=== PATIENT | female | born 1980 | race African-American/Black ===

== ENCOUNTER 2021-01-15 05:31 | Observation (INO) ==
[2021-01-15] MEDS ORDERED: ONDANSETRON 4 MG/2 ML VIAL IV STA ×2 (06:12→08:51)
[2021-01-15] MEDS ORDERED: PANTOPRAZOLE 40 MG VIAL IV STA (06:12)
[2021-01-15 07:03] LABS: Bilirubin,Urine Negative (Negative); Blood, Urine Moderate mg/dL (Negative); Glucose,Urine (UA) >=500 mg/dL (Negative); Ketones,Urine Negative (Negative); Mucus,Urine Occasional /LPF (Occasional); Nitrite,Urine Negative (Negative); Protein,Urine >=500 MG/DL; RBC,Urine 3 /HPF (0-4); Squamous Epithelial Cell,Urine Few /HPF (0-10); Urine Appearance CLEAR (Clear); Urine Color Straw (Yellow); Urine Specific Gravity 1.026 (1.001-1.035); Urine Urobilinogen < 2.0 EU/DL (0.2-1.0)
[2021-01-15 07:42] LABS: Albumin 2.3 G/DL (3.4-5.0); Bilirubin,Total 0.9 MG/DL (0.20-1.00); Calcium 8.8 MG/DL (8.5-10.1); Osmolality,Calculated 289.7 MOS/KG (273-304); Potassium 4.2 MMOL/L (3.5-5.1); Total Protein 6.7 G/DL (6.4-8.2)
[2021-01-15] MEDS ORDERED: HYDROmorphone 2 MG/1 ML VIAL IV STA (08:50)
[2021-01-15] MEDS ORDERED: DEXTROSE 50% 25 GM/50 ML VIAL IV PRN (09:29)
[2021-01-15] MEDS ORDERED: GLUCAGON 1 MG VIAL IM PRN (09:29)
[2021-01-15] MEDS ORDERED: ONDANSETRON 4 MG/2 ML VIAL IV PRN (09:30)
[2021-01-15] MEDS ORDERED: ACETAMINOPHEN 325 MG TABLET PO PRN (09:30)
[2021-01-15] MEDS ORDERED: ENOXAPARIN 40 MG/0.4 ML SYRINGE SUBCUT SCH (09:30)
[2021-01-15] MEDS ORDERED: BISACODYL 5 MG TABLET PO PRN (09:30)
[2021-01-15] MEDS ORDERED: NICOTINE 21 MG/24 HR PATCH TRANSDERM PRN (09:33)
[2021-01-15 10:00] LABS: Basophils # 0.1 10*3/uL (0.0-0.2); Basophils % 0.4 % (0.0-0.8); Eosinophils # 0.1 10*3/uL (0.0-0.87); Eosinophils % 0.8 % (0.00-10.9); Hematocrit 29.5 VOL% (35.7-47.0); Immature Granulocytes % 0.4 %; Immature Granulocytes Absolute 0.05 #; Lymphocytes # 1.3 10*3/uL (1.4-4.0); Mean Corpuscular HGB Conc 27.1 GM/DL (32-36); Mean Corpuscular Volume 58.5 FL (87-102); Monocytes % 7.1 % (1.7-12.7); Neutrophils % 81.3 % (38.7-73.9); Platelet Count 582 T/CUMM (130-400); Red Blood Count 5.04 MC/CUMM (3.8-5.5); Red Cell Distribution Width 21.7 % (9.3-17.3)
[2021-01-15] MEDS ORDERED: PANTOPRAZOLE 40 MG TABLET PO SCH (10:00)
[2021-01-15 10:07] LABS: Hypochromasia 2+
[2021-01-15 10:08] LABS: Microcytosis 2+; Ovalocytes Slight; Platelet Estimate Increased
[2021-01-15] MEDS ORDERED: ALUM/MAG/SIMETH/LIDO VISC 1:1 30 ML BOTTLE PO STA (10:09)
[2021-01-15] MEDS: ATORVASTATIN 20 MG TABLET PO SCH (10:55)
[2021-01-15] MEDS: SODIUM CHLORIDE 0.9% 1,000 ML IV SCH (10:55)
[2021-01-15] MEDS: lisinopriL 20 MG TABLET PO SCH (10:56)
[2021-01-15] MEDS ORDERED: hydroCHLOROthiazide 25 MG TABLET PO STA (11:05)
[2021-01-15] MEDS: INSULIN GLARGINE 100 UNIT/ML SUBCUT SCH (11:26)
[2021-01-15] MEDS: ASPIRIN EC 81 MG TABLET PO SCH (11:27)
[2021-01-15] MEDS: carvediloL 6.25 MG TABLET PO SCH ×2 (11:27→21:18)
[2021-01-15] MEDS: POLYETHYLENE GLYCOL POWDER 17 GM PACK PO SCH (11:27)
[2021-01-15] MEDS: INSULIN LISPRO 100 UNIT/ML SUBCUT SCH ×4 (11:28→21:20)
[2021-01-15] MEDS: FERROUS SULFATE 325 MG TABLET PO SCH (21:18)
[2021-01-15] MEDS: PANTOPRAZOLE 40 MG TABLET PO SCH (21:19)
[2021-01-16] MEDS: SODIUM CHLORIDE 0.9% 1,000 ML IV SCH ×2 (02:28→12:18)
[2021-01-16] MEDS: INSULIN LISPRO 100 UNIT/ML SUBCUT SCH ×2 (08:17→12:42)
[2021-01-16] MEDS: INSULIN GLARGINE 100 UNIT/ML SUBCUT SCH (08:17)
[2021-01-16 08:50] LABS: Basophils # 0.1 10*3/uL (0.0-0.2); Basophils % 0.4 % (0.0-0.8); Eosinophils # 0.1 10*3/uL (0.0-0.87); Eosinophils % 0.5 % (0.00-10.9); Hematocrit 28.4 VOL% (35.7-47.0); Immature Granulocytes % 0.4 %; Immature Granulocytes Absolute 0.06 #; Lymphocytes # 1.5 10*3/uL (1.4-4.0); Mean Corpuscular HGB Conc 27.5 GM/DL (32-36); Monocytes % 7.1 % (1.7-12.7); Neutrophils % 80.6 % (38.7-73.9); Platelet Count 562 T/CUMM (130-400); Red Cell Distribution Width 21.9 % (9.3-17.3); White Blood Count 13.7 T/CUMM (4-12)
[2021-01-16 08:52] LABS: Hemoglobin 7.8 GM/DL (12.0-16.0)
[2021-01-16] MEDS ORDERED: VANCOMYCIN INJ 1,750 MG in SODIUM CHLORIDE 0.9% 500 ML IV ONE (08:54)
[2021-01-16 08:56] LABS: % Iron Saturation 6.5 % (18-50); Bilirubin,Total 0.8 MG/DL (0.20-1.00); Calcium 8.7 MG/DL (8.5-10.1); Ferritin 10.5 ng/mL (8-252); Osmolality,Calculated 279.5 MOS/KG (273-304); Potassium 3.1 MMOL/L (3.5-5.1); Risk Ratio 2.47; Total Protein 6.9 G/DL (6.4-8.2)
[2021-01-16] MEDS ORDERED: hydroCHLOROthiazide 25 MG TABLET PO SCH (09:00)
[2021-01-16] MEDS ORDERED: POTASSIUM CHLORIDE 20 MEQ TABLET PO PRN (09:01)
[2021-01-16 09:12] LABS: Calcium 8.6 MG/DL (8.5-10.1); Osmolality,Calculated 281.4 MOS/KG (273-304); Potassium 3.2 MMOL/L (3.5-5.1)
[2021-01-16] MEDS ORDERED: POLYETHYLENE GLYCOL POWDER 17 GM PACK PO PRN (09:26)
[2021-01-16] MEDS ORDERED: LIDOCAINE 1%/EPI INJ 20 ML VIAL ONE (10:55)
[2021-01-16] MEDS ORDERED: BUPIVACAINE MPF 0.25% 30 ML VIAL ONE (10:55)
[2021-01-16] MEDS ORDERED: MIDAZOLAM 2 MG/2 ML VIAL ONE (11:24)
[2021-01-16] MEDS ORDERED: KETAMINE 500 MG/10 ML VIAL ONE (11:24)
[2021-01-16] MEDS ORDERED: propofoL 200 MG/20 ML VIAL IV ONE (11:38)
[2021-01-16] MEDS ORDERED: POTASSIUM CHLORIDE 20 MEQ TABLET PO ONE (11:58)
[2021-01-16] MEDS: POLYETHYLENE GLYCOL POWDER 17 GM PACK PO SCH (12:18)
[2021-01-16] MEDS: ASPIRIN EC 81 MG TABLET PO SCH (12:41)
[2021-01-16] MEDS: lisinopriL 20 MG TABLET PO SCH (12:41)
[2021-01-16] MEDS: ATORVASTATIN 20 MG TABLET PO SCH (12:41)
[2021-01-16] MEDS: FERROUS SULFATE 325 MG TABLET PO SCH (12:42)
[2021-01-16] MEDS: PANTOPRAZOLE 40 MG TABLET PO SCH (12:42)
[2021-01-16] MEDS: carvediloL 6.25 MG TABLET PO SCH (12:47)
[2021-01-16 13:05] VITALS: BP 134/74
== END 2021-01-16 15:07 | disposition home or self-care (01) ==
LOC: N.EDINP 05:31 → N.ED 05:31 → N.TELEN 12:09
PROVIDERS: ADMIT Internal Medicine; ATTEND Internal Medicine

== ENCOUNTER 2021-02-25 20:08 | Observation (INO) ==
[2021-02-25] MEDS ORDERED: PIPERACILLIN/TAZOBACTAM 3,375 MG in SODIUM CHLORIDE 0.9% 100 ML IV STA (21:56)
[2021-02-25] MEDS ORDERED: SODIUM CHLORIDE 0.9% 1,000 ML IV STA (21:57)
[2021-02-25] MEDS ORDERED: HYDROmorphone 2 MG/1 ML VIAL IV ONE (21:57)
[2021-02-25] MEDS ORDERED: ONDANSETRON 4 MG/2 ML VIAL IV STA (21:57)
[2021-02-25 23:29] LABS: Alanine Aminotransferase < 9 U/L (13-56); Albumin 1.9 G/DL (3.4-5.0); Alkaline Phosphatase 119 U/L (45-117); Aspartate Amino Transferase 12 U/L (0-37); Bilirubin,Total < 0.39 MG/DL (0.20-1.00); Blood Urea Nitrogen 11 MG/DL (7-18); Carbon Dioxide 28 MMOL/L (21-32); Estimated Glom Filtration Rate 86 ML/MIN; Glucose 314 MG/DL (74-106); Osmolality,Calculated 280.1 MOS/KG (273-304); Potassium 3.1 MMOL/L (3.5-5.1); Sodium 135 MMOL/L (136-145); Total Protein 7.5 G/DL (6.4-8.2)
[2021-02-25 23:35] LABS: Basophils # 0.1 10*3/uL (0.0-0.2); Basophils % 0.5 % (0.0-0.8); Eosinophils # 0.1 10*3/uL (0.0-0.87); Eosinophils % 1.1 % (0.00-10.9); Hematocrit 29.2 VOL% (35.7-47.0); Immature Granulocytes % 0.5 %; Immature Granulocytes Absolute 0.06 #; Lymphocytes # 1.6 10*3/uL (1.4-4.0); Lymphocytes % 13.3 % (21.3-54.2); Mean Corpuscular HGB Conc 28.1 GM/DL (32-36); Mean Corpuscular Volume 62.8 FL (87-102); Monocytes % 10.7 % (1.7-12.7); Neutrophils % 73.9 % (38.7-73.9); Platelet Count 383 T/CUMM (130-400); Red Blood Count 4.65 MC/CUMM (3.8-5.5); Red Cell Distribution Width 26.8 % (9.3-17.3); White Blood Count 11.7 T/CUMM (4-12)
[2021-02-25 23:36] LABS: Hemoglobin 8.2 GM/DL (12.0-16.0)
[2021-02-25] MEDS ORDERED: POTASSIUM CHLORIDE 20 MEQ TABLET PO STA (23:36)
[2021-02-26 00:54] LABS: Bacteria,Urine Occasional /HPF (Few); Bilirubin,Urine Negative (Negative); Blood, Urine Negative (Negative); Glucose,Urine (UA) >=500 mg/dL (Negative); Ketones,Urine Negative (Negative); Mucus,Urine Occasional /LPF (Occasional); Nitrite,Urine Negative (Negative); Protein,Urine 100 MG/DL; RBC,Urine 3 /HPF (0-4); Squamous Epithelial Cell,Urine Occasional /HPF (0-10); Urine Appearance CLEAR (Clear); Urine Color Straw (Yellow); Urine Specific Gravity 1.022 (1.001-1.035); Urine Urobilinogen < 2.0 EU/DL (<2.0)
[2021-02-26] MEDS ORDERED: GLUCAGON 1 MG VIAL IM PRN ×2 (02:54→14:30)
[2021-02-26] MEDS ORDERED: ONDANSETRON 4 MG/2 ML VIAL IV PRN ×2 (02:54→12:46)
[2021-02-26] MEDS ORDERED: ACETAMINOPHEN 325 MG TABLET PO PRN (02:54)
[2021-02-26] MEDS ORDERED: HYDROmorphone 2 MG/1 ML VIAL IV PRN ×3 (02:54→12:46)
[2021-02-26] MEDS ORDERED: DEXTROSE 50% 25 GM/50 ML SYRINGE IV PRN (02:59)
[2021-02-26] MEDS: SODIUM CHLORIDE 0.9% 1,000 ML IV SCH ×2 (05:06→15:51)
[2021-02-26 05:10] LABS: Alanine Aminotransferase < 9 U/L (13-56); Albumin 1.6 G/DL (3.4-5.0); Alkaline Phosphatase 108 U/L (45-117); Aspartate Amino Transferase 7 U/L (0-37); Blood Urea Nitrogen 11 MG/DL (7-18); Calcium 8.6 MG/DL (8.5-10.1); Carbon Dioxide 24 MMOL/L (21-32); Estimated Glom Filtration Rate 107 ML/MIN; Glucose 234 MG/DL (74-106); Osmolality,Calculated 283.5 MOS/KG (273-304); Potassium 3.4 MMOL/L (3.5-5.1); Sodium 139 MMOL/L (136-145); Total Protein 7.1 G/DL (6.4-8.2)
[2021-02-26 05:21] LABS: Basophils # 0.1 10*3/uL (0.0-0.2); Basophils % 0.7 % (0.0-0.8); Eosinophils # 0.1 10*3/uL (0.0-0.87); Eosinophils % 1.2 % (0.00-10.9); Hematocrit 29.6 VOL% (35.7-47.0); Immature Granulocytes % 0.3 %; Immature Granulocytes Absolute 0.03 #; Lymphocytes # 1.7 10*3/uL (1.4-4.0); Lymphocytes % 16.7 % (21.3-54.2); Mean Corpuscular Volume 63.1 FL (87-102); Monocytes % 11.4 % (1.7-12.7); Neutrophils % 69.7 % (38.7-73.9); Platelet Count 353 T/CUMM (130-400); Red Blood Count 4.69 MC/CUMM (3.8-5.5); Red Cell Distribution Width 26.9 % (9.3-17.3); White Blood Count 10.3 T/CUMM (4-12)
[2021-02-26 05:24] LABS: Hemoglobin 8.3 GM/DL (12.0-16.0)
[2021-02-26 05:42] LABS: Platelet Estimate Normal
[2021-02-26 05:43] LABS: Anisocytosis 1+
[2021-02-26] MEDS: INSULIN REGULAR 100 UNIT/ML SUBCUT SCH ×3 (06:46→17:38)
[2021-02-26] MEDS: PIPERACILLIN/TAZOBACTAM 3,375 MG in SODIUM CHLORIDE 0.9% 100 ML IV SCH ×2 (08:16→16:31)
[2021-02-26] MEDS ORDERED: SEVOFLURANE 1 UNIT/15 MINUTE INH ONE (10:29)
[2021-02-26] MEDS ORDERED: fentaNYL 100 MCG/2 ML VIAL ONE (10:29)
[2021-02-26] MEDS ORDERED: ONDANSETRON 4 MG/2 ML VIAL ONE (10:29)
[2021-02-26] MEDS ORDERED: MIDAZOLAM 2 MG/2 ML VIAL ONE (10:29)
[2021-02-26] MEDS ORDERED: LIDOCAINE 2% 5 ML VIAL ONE (10:29)
[2021-02-26] MEDS ORDERED: propofoL 200 MG/20 ML VIAL IV ONE (10:29)
[2021-02-26] MEDS: PANTOPRAZOLE 40 MG TABLET PO SCH (13:48)
[2021-02-26] MEDS ORDERED: INFLUENZA VIRUS VACCINE 0.5 ML SYRINGE IM ONE (14:06)
[2021-02-26] MEDS ORDERED: DEXTROSE 50% 25 GM/50 ML VIAL IV PRN (14:30)
[2021-02-26] MEDS ORDERED: ENOXAPARIN 40 MG/0.4 ML SYRINGE SUBCUT SCH (18:30)
[2021-02-27] MEDS: PIPERACILLIN/TAZOBACTAM 3,375 MG in SODIUM CHLORIDE 0.9% 100 ML IV SCH ×3 (00:49→16:31)
[2021-02-27] MEDS: INSULIN REGULAR 100 UNIT/ML SUBCUT SCH ×4 (00:50→17:29)
[2021-02-27] MEDS: HYDROmorphone 2 MG/1 ML VIAL IV PRN ×5 (01:32→22:02)
[2021-02-27] MEDS: SODIUM CHLORIDE 0.9% 1,000 ML IV SCH ×3 (03:33→16:42)
[2021-02-27 07:19] LABS: Basophils % 0.4 % (0.0-0.8); Eosinophils # 0.2 10*3/uL (0.0-0.87); Eosinophils % 2.2 % (0.00-10.9); Hematocrit 28.1 VOL% (35.7-47.0); Hemoglobin 7.7 GM/DL (12.0-16.0); Immature Granulocytes % 0.5 %; Immature Granulocytes Absolute 0.04 #; Lymphocytes # 1.4 10*3/uL (1.4-4.0); Lymphocytes % 17.7 % (21.3-54.2); Mean Corpuscular HGB Conc 27.4 GM/DL (32-36); Mean Corpuscular Volume 64.3 FL (87-102); Monocytes % 11.2 % (1.7-12.7); Platelet Count 384 T/CUMM (130-400); Red Blood Count 4.37 MC/CUMM (3.8-5.5); Red Cell Distribution Width 26.8 % (9.3-17.3); White Blood Count 7.6 T/CUMM (4-12)
[2021-02-27] MEDS: PANTOPRAZOLE 40 MG TABLET PO SCH (08:16)
[2021-02-27] MEDS: carvediloL 6.25 MG TABLET PO SCH ×2 (09:54→16:29)
[2021-02-27] MEDS: POTASSIUM CHLORIDE 10 MEQ TABLET PO SCH (09:54)
[2021-02-27] MEDS: lisinopriL 20 MG TABLET PO SCH (09:54)
[2021-02-27] MEDS: hydroCHLOROthiazide 25 MG TABLET PO SCH (09:55)
[2021-02-27] MEDS: FERROUS SULFATE 325 MG TABLET PO SCH ×2 (09:55→16:29)
[2021-02-27] MEDS: ATORVASTATIN 20 MG TABLET PO SCH (09:55)
[2021-02-27] MEDS: INSULIN LISPRO 100 UNIT/ML SUBCUT SCH ×2 (12:10→16:30)
[2021-02-27] MEDS: SODIUM HYPOCHLORITE 0.25% IRRIG 473 ML BOTTLE TOP SCH (16:37)
[2021-02-27] MEDS ORDERED: FLUCONAZOLE INJ 200 MG/100 ML PREMIX IV SCH (17:00)
[2021-02-27] MEDS ORDERED: INSULIN GLARGINE 100 UNIT/ML SUBCUT SCH (21:00)
[2021-02-28] MEDS: PIPERACILLIN/TAZOBACTAM 3,375 MG in SODIUM CHLORIDE 0.9% 100 ML IV SCH ×2 (01:30→08:46)
[2021-02-28] MEDS: INSULIN REGULAR 100 UNIT/ML SUBCUT SCH ×2 (01:43→05:42)
[2021-02-28] MEDS: HYDROmorphone 2 MG/1 ML VIAL IV PRN (04:31)
[2021-02-28] MEDS: SODIUM CHLORIDE 0.9% 1,000 ML IV SCH ×2 (08:42→08:43)
[2021-02-28] MEDS: INSULIN LISPRO 100 UNIT/ML SUBCUT SCH (08:44)
[2021-02-28] MEDS: ATORVASTATIN 20 MG TABLET PO SCH (08:44)
[2021-02-28] MEDS: carvediloL 6.25 MG TABLET PO SCH (08:45)
[2021-02-28] MEDS: lisinopriL 20 MG TABLET PO SCH (08:45)
[2021-02-28] MEDS: PANTOPRAZOLE 40 MG TABLET PO SCH (08:45)
[2021-02-28] MEDS: POTASSIUM CHLORIDE 10 MEQ TABLET PO SCH (08:45)
[2021-02-28] MEDS: hydroCHLOROthiazide 25 MG TABLET PO SCH (08:45)
[2021-02-28] MEDS: FERROUS SULFATE 325 MG TABLET PO SCH (08:45)
[2021-02-28] MEDS: SODIUM HYPOCHLORITE 0.25% IRRIG 473 ML BOTTLE TOP SCH (08:47)
[2021-02-28] MEDS ORDERED: Liraglutide [Victoza 3-Pak] 0.6 mg/0.1 mL (18 mg/3 mL) Pen Injec SUBCUT SCH (09:00)
[2021-02-28 11:30] VITALS: BP 113/77
== END 2021-02-28 11:45 | disposition home health service (06) ==
LOC: N.EDINP 20:08 → N.ED 20:08 → N.3E 02-26 13:28
PROVIDERS: ADMIT Surgery; ATTEND Surgery